=== PATIENT | male | born 1985 | race American Indian/Alaskan Native ===

== ENCOUNTER 2017-06-09 07:10 | Day surgery (SDC) | payer BC ==
[2017-06-04 10:36] LABS: BASOPHILS % (AUTO) 0.4 % (0-1); EOSINOPHILS # (AUTO) 0.4 X10'3 (0-0.9); EOSINOPHILS % (AUTO) 5.2 % (0-6); LYMPHOCYTES # (AUTO) 2.1 X10'3 (1.1-4.8); LYMPHOCYTES % (AUTO) 27.3 % (21-51); MEAN CORPUSCULAR HEMOGLOBIN 28.3 PG (27.0-31.0); MEAN CORPUSCULAR HGB CONC 34.5 % (33.0-36.5); MEAN CORPUSCULAR VOLUME 82.1 FL (78-98); MEAN PLATELET VOLUME 10.1 FL (7.4-10.4); MONOCYTES # (AUTO) 0.8 X10'3 (0-0.9); MONOCYTES % (AUTO) 10.4 % (2-12); NEUTROPHILS # (AUTO) 4.4 X10'3 (1.8-7.7); NEUTROPHILS % (AUTO) 56.7 % (42-75); PRE OP HEMATOCRIT 43.3 % (42.0-52.0); PRE OP HEMOGLOBIN 14.9 g/dL (14.0-17.9); PRE OP PLATELET COUNT 181 X10'3 (140-440); RED BLOOD COUNT 5.27 X10'6 (4.70-6.10); RED CELL DISTRIBUTION WIDTH 13.6 % (11.5-14.5)
[2017-06-04 10:38] LABS: CLARITY,URINE CLEAR (Clear); COLOR,URINE STRAW (Yellow); GLUCOSE, URINE NEGATIVE (Neg); KETONES,URINE NEGATIVE (Neg); LEUKOCYTE ESTERASE ,URINE NEGATIVE (Neg); NITRITES, URINE NEGATIVE (Neg); OCCULT BLOOD,URINE NEGATIVE (Neg); PROTEIN,URINE NEGATIVE (Neg); UA COLLECTION TYPE CLN CATCH MIDSTREAM; UROBILINOGEN,URINE 0.2 E.U/dL (0.2-1.0)
[2017-06-04 10:50] LABS: ALKALINE PHOSPHATASE 85 IU/L (46-116); BLOOD UREA NITROGEN 17 MG/DL (7-18); BUN/CREATININE RATIO 20.7 (5.4-32.0); CALCIUM 9.2 MG/DL (8.5-10.1); CHLORIDE 104 MMOL/L (99-107); CREATININE 0.82 MG/DL (0.60-1.10); PRE OP ALT 62 U/L (30-65); PRE OP ANION GAP 9 (8-16); PRE OP AST 45 U/L (10-37); PRE OP BILIRUB, TOTAL 0.3 MG/DL (0.0-1.0); PRE OP GLUCOSE 72 MG/DL (70-104); PRE OP SODIUM 142 MMOL/L (135-145); TOTAL CARBON DIOXIDE 29.4 MMOL/L (24-32); TOTAL PROTEIN 7.9 G/DL (6.4-8.2); eGFR > 90 ML/MIN
[~2017-06-09] VITALS: Ht 175.3 cm; Wt 117.0 kg
[2017-06-09] VITALS (8 sets, daily range): BP systolic 125–161; BP diastolic 58–111
[~2017-06-09 07:10] MED LIST: NO HOME MEDS; ceFAZolin 2gm in dextrose, iso 100 ML IV ONE; famotidine 20mg tablet PO ONE; ringers solution, lacted 1,000 ML IV SCH
[2017-06-09] MEDS ORDERED: ringers solution, lacted 1,000 ML IV SCH (08:07)
[2017-06-09] MEDS ORDERED: fentaNYL/PF 50MCG/1 ML 2ML syringe IV PRN ×2 (08:10)
[2017-06-09] MEDS ORDERED: hydrALAZINE 20mg/ml inj. IV PRN (08:10)
[2017-06-09] MEDS ORDERED: labetalol 5mg/ml 20ml inj. IV PRN (08:10)
[2017-06-09] MEDS ORDERED: morphine 4 MG/ML inj SYRINge IV PRN ×2 (08:10)
[2017-06-09] MEDS ORDERED: ondansetron/PF 4mg/2ml inj IV PRN (08:10)
[2017-06-09] MEDS ORDERED: BUPIVAcaine 0.5% inj/PF 30 ml vial ONE (08:59)
[2017-06-09] MEDS ORDERED: sevoflurane 250ml liquid IH ONE (09:53)
[2017-06-09] MEDS ORDERED: dexamethasone sod phosphate 4mg/ml inj. ONE (09:53)
[2017-06-09] MEDS ORDERED: fentaNYL/PF 50MCG/1 ML 2ML syringe ONE ×2 (09:55→10:04)
[2017-06-09] MEDS ORDERED: midazolam 2 mg/2 ml injection ONE ×2 (09:55→09:58)
[2017-06-09] MEDS ORDERED: propofol inj 20 ML IV ONE (10:00)
[2017-06-09] MEDS ORDERED: LIDOcaine 2% (20mg/ml) 5ml vial ONE (10:00)
[2017-06-09] MEDS ORDERED: ondansetron/PF 4mg/2ml inj ONE (10:01)
[2017-06-09] MEDS ORDERED: morphine 10mg/ml inj. ONE (10:40)
[2017-06-09] MEDS ORDERED: HYDROcodone/acetaminophen 10/325mg tab PO ONE (12:15)
== END 2017-06-09 12:35 | disposition home or self-care (01) ==
LOC: PAS 07:10
PROVIDERS: ATTEND Surgery
DX: K64.3 Fourth degree hemorrhoids (principal); K64.4 Residual hemorrhoidal skin tags; K62.2 Anal prolapse; E66.3 Overweight; Z87.09 Personal history of other diseases of the respiratory system; Z98.890 Other specified postprocedural states; Z68.38 Body mass index [BMI] 38.0-38.9, adult
CPT/HCPCS: 36415; 46947; 80053; 81003; 85025; A6224; A6449; J0360; J0690; J1100; J2001; J2250; J2270; J2405; J2704; J3010; J3490; J7120; A7000

== ENCOUNTER 2017-06-17 08:51 | Emergency (ER) | payer BC ==
[~2017-06-17] VITALS: Ht 175.3 cm; Wt 117.0 kg
[~2017-06-17 08:51] MED LIST changes: -ceFAZolin 2gm in dextrose, iso 100 ML IV ONE; -famotidine 20mg tablet PO ONE; -ringers solution, lacted 1,000 ML IV SCH
[2017-06-17 09:01] VITALS: BP 131/79
[2017-06-17] MEDS ORDERED: simethicone 125mg capsule PO SCH (09:30)
[2017-06-17] MEDS ORDERED: ketorolac trometh inj. 60 MG/2 ML VIAL IM ONE (09:30)
[2017-06-17] MEDS ORDERED: ketorolac tromethamine 15mg/ml inj. IM ONE (09:30)
[2017-06-17] MEDS ORDERED: POLY17PO10 PO (09:34)
[2017-06-17] MEDS ORDERED: SIME125C77 PO (09:34)
== END 2017-06-17 10:09 | disposition home or self-care (01) ==
LOC: ER 08:51
DX: R10.9 Unspecified abdominal pain (principal); Z79.899 Other long term (current) drug therapy; Z98.890 Other specified postprocedural states
CPT/HCPCS: 96372; 99283; J1885